=== PATIENT | male | born 2000 | race African-American/Black ===

== ENCOUNTER 2023-07-24 12:36 | Emergency (ER) | payer BC ==
[~2023-07-24] VITALS: Ht 175.3 cm; Wt 81.8 kg
[2023-07-24 13:01] VITALS: BP 129/40; PULSE 95; RESP 20; TEMP 98.4
[2023-07-24] MEDS ORDERED: IBUP-1554 PO (15:30)
== END 2023-07-24 15:50 | disposition home or self-care (01) ==
LOC: EMS 12:50
DX: S20.212A Contusion of left front wall of thorax, initial encounter (principal); S39.012A Strain of muscle, fascia and tendon of lower back, initial encounter; V49.88XA Car occupant (driver) (passenger) injured in other specified transport accidents, initial encounter; Y93.89 Activity, other specified; Y92.89 Other specified places as the place of occurrence of the external cause; Y99.8 Other external cause status
CPT/HCPCS: 71045; 72040; 72100; 99284